=== PATIENT | female | born 1960 | race Caucasian/White ===

== ENCOUNTER 2017-01-21 15:18 | Emergency (ER) | payer OTHER ==
[2017-01-21] MEDS ORDERED: TRAMADOL HYDROC50 MG PO (17:02)
[2017-01-21] MEDS ORDERED: MOTRIN800 MG PO (17:02)
[2017-01-21] MEDS ORDERED: FLEXERIL PO (17:02)
[2017-01-21 17:56] VITALS: BP 148/70
== END 2017-01-21 18:18 | disposition home or self-care (01) | DRG 206 ==
LOC: ED 15:18
DX: S22.32XA Fracture of one rib, left side, initial encounter for closed fracture (principal); F17.210 Nicotine dependence, cigarettes, uncomplicated; S41.102A Unspecified open wound of left upper arm, initial encounter; V43.53XA Car driver injured in collision with pick-up truck in traffic accident, initial encounter